=== PATIENT | female | born 1955 | race Caucasian/White ===

== ENCOUNTER 2016-07-09 17:15 | Emergency (ER) | payer OTHER ==
[2016-07-09] MEDS ORDERED: Albuterol/Ipratropium NEB.SOL* Albuterol 2.5 MG/Ipratropium 0.5 MG 3 ML INH ONE (18:12)
[2016-07-09] MEDS ORDERED: Ibuprofen TAB* 600 MG PO ONE (18:12)
--- NOTE | 2016-07-09 18:13 | UC ---
Respiratory Complaint HPI - HPI Summary HPI Summary: cough, fatigue and sore throat this week - History of Current Complaint Chief Complaint: UCRespiratory Stated Complaint: COUGH,ST Time Seen by Provider: 07/09/16 18:02 Hx Obtained From: Patient ?: No Onset/Duration: Gradual Onset, Lasting Days, Still Present Timing: Constant Character: Cough: Nonproductive Aggravating Factors: Deep Breaths Alleviating Factors: Nothing Associated Signs And Symptoms: Positive: Fever, Chills, Pleuritic Chest Pain, URI, Sinus Discomfort - Allergies/Home Medications Allergies/Adverse Reactions: Allergies Allergy/AdvReac Type Severity Reaction Status Date / Time No Known Allergies Allergy Verified 11/08/14 10:41 PMH/Surg Hx/FS Hx/Imm Hx Previously Healthy: Yes Endocrine History Of: Denies: Diabetes, Thyroid Disease Cardiovascular History Of: Denies: Cardiac Disorders, Hypertension, Pacemaker/ICD Respiratory History Of: Denies: COPD, Asthma GI/ History Of: Denies: Ulcer, Renal Disease Cancer History Of: Denies: Breast Cancer - Surgical History Surgical History: Yes Surgery Procedure, Year, and Place: 1991 ACL RECONSTRUCTION- [place]; CHOLECYSTECTOMY- [place]; ganglion cysts on 2 fingers removed 2014 - Family History Family History: no known history of cardiovascular issues in family lineage - Social History Occupation: Employed Full-time Lives: With Family Alcohol Use: Weekly Alcohol Amount: VARIES 3-5 DRINKS/WEEK SOCIALLY Substance Use Type: None Smoking Status (MU): Never Smoked Tobacco Have You Smoked in the Last Year: No Review of Systems Constitutional: Chills, Fatigue Skin: Negative Eyes: Negative ENT: Sore Throat, Nasal Discharge Respiratory: Cough Cardiovascular: Negative Gastrointestinal: Negative Genitourinary: Negative Motor: Negative Neurovascular: Negative Musculoskeletal: Negative Neurological: Negative Psychological: Negative All Other Systems Reviewed And Are Negative: Yes Physical Exam Triage Information Reviewed: Yes Appearance: Well-Nourished, Ill-Appearing, Pain Distress Vital Signs Reviewed: Yes Eye Exam: Normal Eyes: Positive: Conjunctiva Clear ENT Exam: Normal ENT: Positive: Normal ENT inspection, Hearing grossly normal, Pharynx normal, Nasal congestion, TMs normal. Negative: Tonsillar swelling, Tonsillar exudate, Trismus, Muffled/hoarse voice Dental Exam: Normal Neck exam: Normal Neck: Positive: Supple, Nontender, No Lymphadenopathy Respiratory Exam: Normal, Other Respiratory: Positive: Chest non-tender, No respiratory distress, No accessory muscle use, Wheezing Cardiovascular Exam: Normal Cardiovascular: Positive: RRR, No Murmur, Pulses Normal, Brisk Capillary Refill Musculoskeletal Exam: Normal Musculoskeletal: Positive: Strength Intact, ROM Intact, No Edema Neurological Exam: Normal Neurological: Positive: Alert, Muscle Tone Normal Psychological Exam: Normal Psychological: Positive: Normal Response To Family Skin Exam: Normal UC Diagnostic Evaluation - Radiology Xray Interpretation: Positive (See Comments) - 12 mm nodule in chest Re-Evaluation - Re-Evaluation First Eval Change: Improved - chest feels less congested, wheeze resolved Respiratory Course/Dx - Course Course Of Treatment: follow with pcp stephenie for ct chest, rest increase fluids, z- max, albuterol - Differential Dx/Diagnosis Differential Diagnosis/HQI/PQRI: Bronchitis, Exacerbation Of COPD, Laryngitis, Lower Resp Infection, Sinusitis Provider Diagnoses: Pulmonary nodule, lower respiratory infection Discharge - Discharge Plan Condition: Stable Disposition: HOME Prescriptions: Albuterol HFA INHALER* [Ventolin HFA Inhaler*] 2 puff INH Q6H PRN #1 mdi PRN Reason: cough Azithromycin TAB* [Zithromax TAB (Z-ANGELINE)*] 0 mg PO .Z-ANGELINE INSTRUCTIONS #6 tab Spacer/Aerosol-Holding Chamber [Aerochamber Plus] 1 mis .SEE ORDER SEE INSTRUCTIONS #1 mis Patient Education Materials: How to Use a Metered-Dose Inhaler (ED), Upper Respiratory Infection (ED), Pulmonary Nodules (ED) Referrals: Marry Hernandez MD [Primary Care Provider] - 1 Day
[2016-07-09 18:30] VITALS: BP 138/88
--- NOTE | 2016-07-09 18:39 | RAD ---
INDICATION: 4 days cough. Fever. COMPARISON: None. TECHNIQUE: Dual energy PA and routine lateral views of the chest were obtained. REPORT: Elevated lung volumes. Approximate 1.2 cm maximum dimension nodular density at the anterior segment of the RIGHT upper lobe peripherally. Negative for pleural effusions or pneumothorax. Negative for cardiomegaly or prominence of the central pulmonary vasculature. Indeterminate opacity in the retrosternal clear space measuring up to 3.5 cm which may represent alveolar consolidation or potentially a mediastinal mass. IMPRESSION: Indeterminant nodular density at the anterior segment of the RIGHT upper lobe as well as indeterminate opacity at the retrosternal clear space on the lateral view. Given absence of prior exams for comparison CT suggested for further assessment. Stigmata of potential chronic obstructive pulmonary disease.
== END 2016-07-09 19:07 | disposition home or self-care (01) ==
LOC: UCEAST 17:15
DX: J22 Unspecified acute lower respiratory infection (principal)
CPT/HCPCS: 71020; 94640; 99212; A9270-GY; G0463

== ENCOUNTER 2017-05-21 19:02 | Emergency (ER) | payer OTHER ==
[2017-05-21 19:09] VITALS: BP 128/82
[2017-05-21] MEDS ORDERED: Azithromycin TAB* 250 MG PO ONE (19:34)
--- NOTE | 2017-05-21 19:44 | UC ---
Respiratory Complaint HPI - HPI Summary HPI Summary: Patient presents with complaints of two week onset respiratory illnesses. She states that she continues to have sinus pain, pressure and congestion. She also complains of sinus pain behind her eyes. She denies fever, chills, chest pain, abdominal pain, nausea, vomiting and or diarrhea. - History of Current Complaint Chief Complaint: UCRespiratory Stated Complaint: COLD Time Seen by Provider: 05/21/17 19:20 Hx Obtained From: Patient ?: No Onset/Duration: Gradual Onset, Lasting Weeks Timing: Constant Severity Initially: Moderate Severity Currently: Moderate Character: Cough: Nonproductive Aggravating Factors: Nothing Alleviating Factors: Spontaneous Resolution Associated Signs And Symptoms: Positive: URI, Nasal Congestion, Sinus Discomfort - Risk Factors Pulmonary Embolism Risk Factors: Negative Cardiac Risk Factors: Negative Tuberculosis Risk Factors: Negative - Allergies/Home Medications Allergies/Adverse Reactions: Allergies Allergy/AdvReac Type Severity Reaction Status Date / Time No Known Allergies Allergy Verified 05/21/17 19:09 Home Medications: Home Medications Ibuprofen TAB* [Advil TAB*] 600 mg PO PRN 05/21/17 [History] Lisdexamfetamine(NF) [Vyvanse(NF)] 20 mg PO 05/21/17 [History] PMH/Surg Hx/FS Hx/Imm Hx Previously Healthy: Yes - Surgical History Surgical History: Yes Surgery Procedure, Year, and Place: 1991 ACL RECONSTRUCTION[place]; ganglion cysts on 2 fingers removed 2014 - Family History Known Family History: Positive: None Family History: no known history of cardiovascular issues in family lineage - Social History Occupation: Employed Full-time Alcohol Use: Occasionally Alcohol Amount: VARIES 3-5 DRINKS/WEEK SOCIALLY Substance Use Type: None Smoking Status (MU): Never Smoked Tobacco Have You Smoked in the Last Year: No Review of Systems Constitutional: Negative Skin: Negative Eyes: Negative ENT: Sinus Congestion, Sinus Pain/Tenderness Respiratory: Cough Cardiovascular: Negative Gastrointestinal: Negative Genitourinary: Negative Motor: Negative Neurovascular: Negative Musculoskeletal: Negative Neurological: Negative Psychological: Negative All Other Systems Reviewed And Are Negative: Yes Physical Exam Triage Information Reviewed: Yes Appearance: Well-Appearing Vital Signs: Initial Vital Signs Temp 97.9 F 05/21/17 19:05 Pulse 82 05/21/17 19:05 Resp 16 11/17/17 19:05 BP 128/82 05/21/17 19:05 Pulse Ox 97 05/21/17 19:05 Vital Signs Reviewed: Yes Eye Exam: Normal ENT: Positive: Nasal congestion, Nasal drainage, Hoarse voice, Sinus tenderness Dental Exam: Normal Neck exam: Normal Neck: Positive: 1 Respiratory Exam: Normal Cardiovascular Exam: Normal Abdominal Exam: Normal Musculoskeletal Exam: Normal Neurological Exam: Normal Psychological Exam: Normal Skin Exam: Normal UC Diagnostic Evaluation - Laboratory O2 Sat by Pulse Oximetry: 97 Respiratory Course/Dx - Course Course Of Treatment: Patient has persistent URI symptoms with associated sinus pain, pressure and on exam she has tenderness to palpation over the frontal sinuses, and the turbinates are inflammed and injected and edematous. Given the fact that it has been two weeks, I will proceed with treatment with zpk. First dose of zithromax 500 mg was given in the department. Patient was discharge home in stable condition. - Differential Dx/Diagnosis Differential Diagnosis/HQI/PQRI: Sinusitis Provider Diagnoses: sinusitis Discharge - Discharge Plan Condition: Stable Disposition: HOME Prescriptions: Azithromycin TAB* [Zithromax TAB (Z-ANGELINE) 250 mg #6 tabs] 250 mg PO DAILY #4 tab Patient Education Materials: Sinusitis (ED) Forms: *Work Release Referrals: Marry Hernandez MD [Primary Care Provider] -
== END 2017-05-21 19:44 | disposition home or self-care (01) ==
LOC: UCEAST 19:02
DX: J32.9 Chronic sinusitis, unspecified (principal); Z72.89 Other problems related to lifestyle
CPT/HCPCS: 99212; A9270-GY; G0463

== ENCOUNTER 2017-10-01 11:23 | Emergency (ER) | payer OTHER ==
[2017-10-01 11:37] VITALS: BP 124/81
--- NOTE | 2017-10-01 12:32 | UC ---
Respiratory Complaint HPI - HPI Summary HPI Summary: Patient comes to urgent care today with 7 days of upper respiratory symptoms. She complains of fatigue just wanting to her head down on her desk in sleep. 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 - History of Current Complaint Chief Complaint: UCGeneralIllness Stated Complaint: COUGH,HEADACHE Time Seen by Provider: 10/01/17 12:28 Hx Obtained From: Patient ?: No Onset/Duration: Sudden Onset, Lasting Days - 6-7 Timing: Constant Severity Initially: Mild Severity Currently: Moderate - 6 Pain Scale Used: 0-10 Numeric Character: Cough: Nonproductive Aggravating Factors: Recumbent Position Alleviating Factors: Nothing Associated Signs And Symptoms: Positive: Chills, Pleuritic Chest Pain, URI, Nasal Congestion, Sinus Discomfort - Allergies/Home Medications Allergies/Adverse Reactions: Allergies Allergy/AdvReac Type Severity Reaction Status Date / Time No Known Allergies Allergy Verified 10/01/17 11:30 PMH/Surg Hx/FS Hx/Imm Hx Previously Healthy: Yes - Surgical History Surgical History: Yes Surgery Procedure, Year, and Place: 1991 ACL RECONSTRUCTION- [place]; [place]OMY- [place]; ganglion cysts on 2 fingers removed 2014 - Family History Known Family History: Positive: None Family History: no known history of cardiovascular issues in family lineage - Social History Occupation: Employed Full-time Lives: With Family Alcohol Use: Occasionally Alcohol Amount: VARIES 3-5 DRINKS/WEEK SOCIALLY Substance Use Type: None Smoking Status (MU): Never Smoked Tobacco Have You Smoked in the Last Year: No Review of Systems Constitutional: Chills, Fatigue Skin: Negative Eyes: Negative ENT: Negative, Nasal Discharge, Sinus Congestion, Sinus Pain/Tenderness Respiratory: Cough Cardiovascular: Negative Gastrointestinal: Negative Genitourinary: Negative Motor: Negative Neurovascular: Negative Musculoskeletal: Arthralgia Neurological: Headache Psychological: Negative Is Patient Immunocompromised?: No All Other Systems Reviewed And Are Negative: Yes Physical Exam Triage Information Reviewed: Yes Appearance: Well-Appearing, No Pain Distress, Well-Nourished Vital Signs: Initial Vital Signs Temp 98.9 F 10/01/17 11:31 Pulse 91 10/01/17 11:31 Resp 16 10/01/17 11:31 BP 124/81 10/01/17 11:31 Pulse Ox 98 10/01/17 11:31 Vital Signs Reviewed: Yes Eye Exam: Normal Eyes: Positive: Conjunctiva Clear ENT Exam: Normal ENT: Positive: Normal ENT inspection, Hearing grossly normal, Pharynx normal, Nasal congestion, TMs normal, Sinus tenderness, Uvula midline. Negative: Tonsillar swelling, Tonsillar exudate, Trismus, Muffled voice, Hoarse voice, Dental tenderness Neck exam: Normal Neck: Positive: Supple, Nontender, No Lymphadenopathy Respiratory Exam: Normal Respiratory: Positive: Chest non-tender, Lungs clear, Normal breath sounds, No respiratory distress, No accessory muscle use Cardiovascular Exam: Normal Cardiovascular: Positive: RRR, No Murmur, Pulses Normal, Brisk Capillary Refill Musculoskeletal Exam: Normal Musculoskeletal: Positive: Strength Intact, ROM Intact, No Edema Neurological Exam: Normal Neurological: Positive: Alert, Muscle Tone Normal Psychological Exam: Normal Skin Exam: Normal UC Diagnostic Evaluation - Laboratory O2 Sat by Pulse Oximetry: 98 Diagnostic Studies Comment: Influenza A/B (-) Respiratory Course/Dx - Course Course Of Treatment: tylenol, ibuprofen, increase fluids, otc medications for symptoms relief, tessalon pearls prn follow with pcp prn - Differential Dx/Diagnosis Provider Diagnoses: URI Discharge - Sign-Out/Discharge Documenting (check all that apply): Discharge - Discharge Plan Condition: Stable Disposition: HOME Prescriptions: Benzonatate CAP* [Tessalon 100 MG CAP*] 100 - 200 mg PO TID PRN #40 cap PRN Reason: cough Patient Education Materials: Upper Respiratory Infection (ED), Viral Syndrome ( ED) Referrals: Marry Hernandez MD [Primary Care Provider] - If Needed - Billing Disposition and Condition Condition: STABLE Disposition: HOME
== END 2017-10-01 13:06 | disposition home or self-care (01) ==
LOC: UCEAST 11:23
DX: J06.9 Acute upper respiratory infection, unspecified (principal)
CPT/HCPCS: 87502; 99212; G0463

== ENCOUNTER 2018-09-09 10:49 | Emergency (ER) | payer OTHER ==
--- OUTSIDE RECORDS SUMMARY | 2018-09-09 10:58 | XMS REPORT | Continuity of Care Document ---
:1955 External Reference #:[id number] Author Name Marry Hernandez M.D. Address [address] [facility] [place] [address] Care Team Providers Name Role Phone Marry Hernandez MD Primary Care Physician Unavailable Payers Date Identification Numbers Payment Provider Subscriber Effective: 2012 Policy Number: [id number] [facility] Hernán M Toro Group Number: [id number] [address] PayID: [id number] [place] [address] Expires: 2012 Policy Number: [id number] [facility] Hernán Escobar Toro Group Number: [id number] [address] PayID: [id number] [place] [address] Expires: 2006 Policy Number: [id number] [facility] KAELYN Engel PayID: [id number] [address] [address] JEANINE Evans [address] Advance Directives Type Date Description Status Comment Other Directive 06/21/2018 Health Care Proxy Current and Verified Problems Date Description Provider Status Onset: 11/23/2011 Attention deficit hyperactivity Jeannette Zarate, N.P. Active disorder, predominantly inattentive type Onset: 08/24/2014 Osteopenia Marry Hernandez M.D. Active Onset: 08/10/2017 Enthesopathy of ankle AND/OR tarsus Larry Jerry MD Active Onset: 08/10/2017 Strain of peroneal tendon Larry Jerry MD Active Family History Date Family Member(s) Observation Comments : (age Father due to Alzheimer's Heart Disease, Prostate 89 Years) Disease Cancer : (age Mother due to Heart Perforated Ulcer, 82 Years) Disease Embolism Children 2 sons Siblings 5 First Brother Hyperthyroidism Thyroid Cancer Second Brother SKin Cancer First Sister Cancer Uterine Second Sister Alive And Well Third Sister Alive And Well Social History Type Date Description Comments Sex Unknown Marital Status Lives With Alone 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 Unknown smoker Never daily Smoking Status Reviewed: 08/22/18 Patient is a former not since her 30s. smoker Never daily Exercise Type/Frequency Exercises regularly 2 - 3 days weekly Allergies, Adverse Reactions, Alerts Description No Known Drug Allergies Medications Medication Date Status Form Strength Qnty SIG Indications Ordering Provider Vyvanse Active Capsules 20mg once a day Unknown Escitalopram Active Tablets 10mg 1 by mouth Unknown every day No Active 07/08 Hx Unknown Medications /2017 - 12/27 Ergocalciferol 11/12 Hx Capsules [id number] 12cap 1 cap by E55.9 s mouth every Cotton, - week for 12 M.D. Fluticasone 11/12 Hx Suspension 50mcg/Act 16gm 2 J31.0 intranasal Cotton, - puffs once M.D. 11/13 Vyvanse 08/24 Hx Capsules 20mg 1 by mouth prn Varn, N.P. - 07/08 Ergocalciferol 20 Hx Capsules [id number] 12cap 1 cap by 268.9 s mouth every Cotton, - week for 12 M.D. Ambien 12/02 Hx Tablets 5mg 30tab one by s mouth at Anni, - bedtime as M.D., FACP 07/12 needed for sleep Zithromax Z-Saleem 09/03 Hx Tablets 250mg 1Pack two po initially Cotton, - then one po M.D. 09/13 Proair HFA 09/03 Hx Aerosol 108(90Bas 1unit 1 to 2 e) mcg/ac s inhalations Anni, - every 4 M.DBritton, FACP 07/12 hours needed Vyvanse 05/08 Hx Capsules 60mg 30cap 1 capsule s daily Lenny Hutton M.D., FACP 08/24 Wellbutrin XL Hx 150mg Unknown /0000 - 07/08 Immunizations CPT Code Status Date Vaccine Lot # [id number] Given 07/12/2012 Zoster (Zostavax) [id number] 21242 Given 11/23/2011 Hepatitis B Vaccine Adult Dosage [id number] 73562 Given 06/24/2011 Hepatitis B Vaccine Adult Dosage 30708 Given 12/22/2010 Hepatitis B Vaccine Adult Dosage [id number] 05700 Given 12/22/2010 Hepatitis A Vaccine Adult Dosage [id number] 73600 Given 06/23/2010 Hepatitis B Vaccine Adult Dosage 64671 Given 06/23/2010 Hepatitis A Vaccine Adult Dosage 09442 Given 09/01/2007 Tdap - Tetanus/Diptheria/Acellular Pertussis 05921 Given 06/03/2006 Influenza Virus 3Yrs & Over Vital Signs Date Vital Result Comment 08/22/2018 4:39pm Height 65.25 inches 5'5.25" Weight 171.00 lb Heart Rate 75 /min BP Systolic 118 mmHg BP Diastolic 83 mmHg BP Systolic Sitting 118 mmHg BP Diastolic Sitting 83 mmHg O2 % BldC Oximetry 98 % BMI (Body Mass Index) 28.2 kg/m2 06/21/2018 11:33am Height 65.25 inches 5'5.25" Weight 166.00 lb Heart Rate 76 /min BP Systolic Sitting 117 mmHg BP Diastolic Sitting 82 mmHg Body Temperature 98.0 F O2 % BldC Oximetry 97 % BMI (Body Mass Index) 27.4 kg/m2 12/27/2017 12:57pm Height 65.25 inches 5'5.25" Weight 165.50 lb Heart Rate 76 /min BP Systolic Sitting 132 mmHg BP Diastolic Sitting 94 mmHg Respiratory Rate 16 /min Body Temperature 96.9 F BMI (Body Mass Index) 27.3 kg/m2 08/10/2017 8:45am Height 65.5 inches 5'5.50" Weight 155.00 lb BP Systolic 122 mmHg BP Diastolic 88 mmHg Respiratory Rate 16 /min Body Temperature 95.7 F Pain Level 4 BMI (Body Mass Index) 25.4 kg/m2 07/08/2017 3:26pm Height 65.5 inches 5'5.50" Weight 165.00 lb Heart Rate 74 /min BP Systolic 128 mmHg BP Diastolic 80 mmHg Respiratory Rate 14 /min Body Temperature 98.4 F Pain Level 5 BMI (Body Mass Index) 27.0 kg/m2 11/13/2016 1:06pm Height 65.5 inches 5'5.50" Weight 166.50 lb Heart Rate 84 /min BP Systolic 122 mmHg BP Diastolic 80 mmHg Body Temperature 97.5 F O2 % BldC Oximetry 98 % BMI (Body Mass Index) 27.3 kg/m2 11/13/2015 11:16am Height 65.5 inches 5'5.50" Weight 166.25 lb Heart Rate 66 /min BP Systolic Sitting 127 mmHg BP Diastolic Sitting 81 mmHg O2 % BldC Oximetry 98 % BMI (Body Mass Index) 27.2 kg/m2 10/29/2014 2:53pm Heart Rate 76 /min BP Systolic Sitting 122 mmHg BP Diastolic Sitting 78 mmHg 10/01/2014 2:53pm Height 66 inches 5'6" Weight 160.00 lb Heart Rate 86 /min BP Systolic 90 mmHg BP Diastolic 65 mmHg Body Temperature 97.8 F Pain Level 0 BMI (Body Mass Index) 25.8 kg/m2 08/24/2014 3:40pm Height 66 inches 5'6" Weight 160.00 lb Heart Rate 86 /min BP Systolic Sitting 110 mmHg BP Diastolic Sitting 72 mmHg Body Temperature 97.2 F BMI (Body Mass Index) 25.8 kg/m2 04/05/2014 4:41pm Height 66 inches 5'6" Weight 155.00 lb Heart Rate 90 /min BP Systolic 125 mmHg BP Diastolic 84 mmHg BMI (Body Mass Index) 25.0 kg/m2 07/12/2012 2:02pm Height 66.5 inches 5'6.50" Heart Rate 76 /min BP Systolic Sitting 100 mmHg BP Diastolic Sitting 70 mmHg Body Temperature 97.4 F 11/23/2011 1:02pm Height 66.5 inches 5'6.50" Weight 156.00 lb Heart Rate 80 /min BP Systolic Sitting 124 mmHg BP Diastolic Sitting 68 mmHg BMI (Body Mass Index) 24.8 kg/m2 09/03/2010 1:44pm Weight 154.00 lb Heart Rate 78 /min BP Systolic 110 mmHg BP Diastolic 78 mmHg Body Temperature 98.3 F 06/23/2010 3:05pm Weight 152.00 lb Heart Rate 80 /min BP Systolic 120 mmHg BP Diastolic 78 mmHg 05/08/2010 8:37am Weight 150.50 lb Heart Rate 78 /min BP Systolic 110 mmHg BP Diastolic 80 mmHg Results Test Date Facility Test Result H/L Range Note Lipid Profile 08/15/2018 [facility] Triglycerides 41 mg/dL 1 (Trig/Chol/HDL) [address] [place], [place] [id number] [phone] Cholesterol 157 mg/dL 2 HDL Cholesterol 70.2 mg/dL 3 LDL Cholesterol 79 mg/dL 4 Laboratory test 08/15/2018 [facility] Glucose 104 mg/dL High 70-100 finding [address] [place], [place] [id number] [phone] Rapid Influenza 10/01/2017 [facility] Influenza A NEGATIVE Negative 5 A & B Molecular [address] [facility] [place] [address] [phone] Influenza B Molecular NEGATIVE Negative Lipid Profile 11/05/2016 [facility] Triglycerides 61 mg/dL N 6 (Trig/Chol/HDL) [address] [place], [place] [id number] [phone] Cholesterol 149 mg/dL N 7 HDL Cholesterol 54.3 mg/dL N 8 LDL Cholesterol 83 mg/dL N 9 Comp Metabolic Panel 11/05/2016 [facility] Sodium 138 mmol/L N 133-145 [address] [place] [address] [phone] Potassium 4.0 mmol/L N 3.5-5.0 Chloride 101 mmol/L N 101-111 Co2 Carbon Dioxide 31 mmol/L N 22-32 Anion Gap 6 mmol/L N 2-11 Glucose 96 mg/dL N 70-100 Blood Urea Nitrogen 15 mg/dL N 6-24 Creatinine 0.78 mg/dL N 0.51-0.95 BUN/Creatinine Ratio 19.2 N 8-20 Calcium 9.4 mg/dL N 8.6-10.3 Total Protein 6.7 g/dL N 6.4-8.9 Albumin 4.2 g/dL N 3.2-5.2 Globulin 2.5 g/dL N 2-4 Albumin/Globulin Ratio 1.7 N 1-3 Total Bilirubin 0.50 mg/dL N 0.2-1.0 Alkaline Phosphatase 63 U/L N 34-104 Alt 15 U/L N 7-52 Ast 16 U/L N 13-39 Egfr Non- 75.1 N >60 Egfr 96.6 N >60 10 CBC Auto Diff 11/05/2016 [facility] White Blood 4.7 10^3/uL N 3.5-10.[address] [place] [address] [phone] Red Blood Count 4.55 10^6/uL N 4.0-5.4 Hemoglobin 13.5 g/dL N 12.0-16.0 Hematocrit 40 % N 35-47 Mean Corpuscular Volume 89 fL N 80-97 Mean Corpuscular Hemoglobin 30 pg N 27-31 Mean Corpuscular HGB Conc 33 g/dL N 31-36 Red Cell Distribution Width 13 % N 10.5-15 Platelet Count 274 10^3/uL N 150-450 Mean Platelet Volume 8 um3 N 7.4-10.4 Abs Neutrophils 2.6 10^3/uL N 1.5-7.7 Abs Lymphocytes 1.5 10^3/uL N 1.0-4.8 Abs Monocytes 0.5 10^3/uL N 0-0.8 Abs Eosinophils 0.1 10^3/uL N 0-0.6 Abs Basophils 0.1 10^3/uL N 0-0.2 Abs Nucleated RBC 0 10^3/uL N Granulocyte % 54.9 % N 38-83 Lymphocyte % 32.0 % N 25-47 Monocyte % 9.9 % High 1-9 Eosinophil % 2.0 % N 0-6 Basophil % 1.2 % N 0-2 Nucleated Red Blood Cells % 0 N CBC Auto Diff 07/17/2016 [facility] White Blood 5.0 10^3/uL N 3.5-10.[address] [place] [address] [phone] Red Blood Count 4.26 10^6/uL N 4.0-5.4 Hemoglobin 12.6 g/dL N 12.0-16.0 Hematocrit 37 % N 35-47 Mean Corpuscular Volume 88 fL N 80-97 Mean Corpuscular Hemoglobin 30 pg N 27-31 Mean Corpuscular HGB Conc 34 g/dL N 31-36 Red Cell Distribution Width 13 % N 10.5-15 Platelet Count 490 10^3/uL High 150-450 Mean Platelet Volume 7 um3 Low 7.4-10.4 Abs Neutrophils 2.6 10^3/uL N 1.5-7.7 Abs Lymphocytes 1.8 10^3/uL N 1.0-4.8 Abs Monocytes 0.4 10^3/uL N 0-0.8 Abs Eosinophils 0.1 10^3/uL N 0-0.6 Abs Basophils 0.1 10^3/uL N 0-0.2 Abs Nucleated RBC 0 10^3/uL N Granulocyte % 51.7 % N 38-83 Lymphocyte % 36.3 % N 25-47 Monocyte % 8.6 % N 1-9 Eosinophil % 2.3 % N 0-6 Basophil % 1.1 % N 0-2 Nucleated Red Blood Cells % 0.1 N Comp Metabolic Panel 07/17/2016 [facility] Sodium 138 mmol/L N 133-[address] [place] [address] [phone] Potassium 4.3 mmol/L N 3.5-5.0 Chloride 101 mmol/L N 101-111 Co2 Carbon Dioxide 32 mmol/L N 22-32 Anion Gap 5 mmol/L N 2-11 Glucose 93 mg/dL N 70-100 Blood Urea Nitrogen 13 mg/dL N 6-24 Creatinine 0.68 mg/dL N 0.51-0.95 BUN/Creatinine Ratio 19.1 N 8-20 Calcium 9.4 mg/dL N 8.6-10.3 Total Protein 6.9 g/dL N 6.4-8.9 Albumin 3.9 g/dL N 3.2-5.2 Globulin 3.0 g/dL N 2-4 Albumin/Globulin Ratio 1.3 N 1-3 Total Bilirubin 0.20 mg/dL N 0.2-1.0 Alkaline Phosphatase 80 U/L N 34-104 Alt 17 U/L N 7-52 Ast 15 U/L N 13-39 Egfr Non- 88.0 N >60 Egfr 113.1 N >60 11 Laboratory test 11/12/2015 [facility] Vitamin D 17.2 ng/mL Low 30-50 [address] Total 25(Oh) [place] [address] [phone] Glucose 91 mg/dL N 70-100 13 Lipid Profile 11/12/2015 [facility] Triglycerides 51 mg/dL N 14 (Trig/Chol/HDL) [address] [place] [address] [phone] Cholesterol 179 mg/dL N 15 HDL Cholesterol 69.7 mg/dL N 16 LDL Cholesterol 99 mg/dL N 17 Surgical Pathology 10/16/2014 [facility] S RUN DATE: [address] <SEE NOTE> [place] [address] [phone] Laboratory test 08/24/2014 [facility] Cytology RUN DATE: finding [address] <SEE NOTE> [place] [address] [phone] HPV Rna W/ Reflex Genotype Negative N Negative 20 Vitamin D, 25 08/20/2014 [facility] 25-Hydroxy Vitamin <4.0 ng/ mL N [address] [address] [phone] 25-Hydroxy Vitamin D3 12 ng/mL N 25-Hydroxy Vitamin D Total 12 ng/mL Abnormal 22 Laboratory test 08/20/2014 [facility] Glucose 90 mg/dL N 70- [address] [place] [address] [phone] Lipid Profile 08/20/2014 [facility] Triglycerides 46 mg/dL N 24 (Trig/Chol/HDL) [address] [place] [address] [phone] Cholesterol 132 mg/dL N 25 HDL Cholesterol 55.4 mg/dL N 26 LDL Cholesterol 67 mg/dL N 27 Urine Culture And 07/12/2012 [facility] Urine Culture (SEE NOTE ) [address] [place] [address] [phone] Ua Routine 07/12/2012 [employer] Ua Specific 1.000 Gilead Ua PH 6 Ua Color yellow Ua Appera clear Ua WBC neg Ua Protein neg Ua Glucose neg Ua Ketones neg Ua Bilirubin neg Ua Urobilinogen neg Ua Nitrite neg Ua Occult Blood neg Vitamin D, 25 06/17/2012 [facility] 25-Hydroxy Vitamin <4.0 ng/ mL Hydroxy [address] [address] [phone] 25-Hydroxy Vitamin D3 18 ng/mL 25-Hydroxy Vitamin D Total 18 ng/mL Abnormal 29 Vitamin D 06/17/2012 [facility] Vitamin D 48 pg/mL 18-78 30 1,[address] 1,25-Dihydroxy Vitamin D,2 [place], [place] [id number] [phone] Lipid Profile 06/17/2012 [facility] Triglycerides 28 mg/dL Low 40-200 (Trig/Chol/HD [address] L) [place] [address] [phone] Cholesterol 161 mg/dL Less than 200 HDL Cholesterol 68 mg/dL High 40-60 31 Cholesterol/HDL Ratio 2.4 Average 1-4.44 LDL Cholesterol 87.4 mg/dL Less Than 100 32 Comp Metabolic Panel 06/17/2012 [facility] Sodium 139 mmol/L 133-[address] [place] [address] [phone] Potassium 4.1 mmol/L 3.5-5.0 Chloride 103 mmol/L 101-111 Co2 Carbon Dioxide 31.0 mmol/L 22-32 Anion Gap 5.0 mmol/L 2-11 Glucose 75 mg/dL 70-100 Blood Urea Nitrogen 14 mg/dL 6-24 Creatinine 0.70 mg/dL 0.50-1.40 BUN/Creatinine Ratio 20.0 8-20 Calcium 9.5 mg/dL 8.1-9.9 Total Protein 6.8 g/dL 6.2-8.1 Albumin 4.3 g/dL 3.6-5.4 Globulin 2.5 g/dL 2-4 Albumin/Globulin Ratio 1.7 1-3 Total Bilirubin 1.0 mg/dL 0.4-1.5 Alkaline Phosphatase 69 U/L 30-110 Alt 24 U/L 14-54 Ast 24 U/L 12-42 Egfr Non- 86.2 >60 Egfr 110.9 >60 33 Laboratory test 06/17/2012 [facility] TSH (Thyroid 1.15 0.34- 5.60 [address] Stimulating miu/[place] [address] Horm) [phone] Urine Culture And 06/17/2012 [facility] Urine Culture (SEE [address] NOTE) [place] [address] [phone] Laboratory test 11/23/2011 [facility] Cytology --------- [address] ------- [place] [address] <SEE [phone] NOTE> 1 Desirable: <150 Borderline High: 150-199 High: 200-499 Very High: >500 2 Desirable: <200 Borderline High: 200-239 High: >239 3 Low: <40 Desirable: 40-60 High: >60 4 Desirable: <100 Near Optimal: 100-129 Borderline High: 130-159 High: 160-189 Very High: >189 5 Patient Care Manager: [id number] Desirable <150 Borderline high 150-199 High 200-499 Very High >500 7 Desirable <200 Borderline high 200-239 High >239 8 Low <40 Desirable: 40-60 High: >60 9 Desirable: <100 mg/dL Near Optimal: 100-129 mg/dL Borderline High: 130-159 mg/dL High: 160-189 mg/dL Very High: >189 mg/dL 10 Because ethnic data is not always readily available, this report includes an eGFR for both -Americans and non- Americans. The National Kidney Disease Education Program (NKDEP) does not endorse the use of the MDRD equation for patients that are not between the ages of 18 and 70, are , have extremes of body size, muscle mass, or nutritional status, or are non- or non-. According to the National Kidney Foundation, irrespective of diagnosis, the stage of the disease is based on the level of kidney function: Stage Description GFR(mL/min/1.73 m(2)) 1 Kidney damage with normal or decreased GFR 90 2 Kidney damage with mild decrease in GFR 60-89 3 Moderate decrease in GFR 30-59 4 Severe decrease in GFR 15-29 5 Kidney failure <15 (or dialysis) 11 Because ethnic data is not always readily available, this report includes an eGFR for both -Americans and non- Americans. The National Kidney Disease Education Program (NKDEP) does not endorse the use of the MDRD equation for patients that are not between the ages of 18 and 70, are , have extremes of body size, muscle mass, or nutritional status, or are non- or non-. According to the National Kidney Foundation, irrespective of diagnosis, the stage of the disease is based on the level of kidney function: Stage Description GFR(mL/min/1.73 m(2)) 1 Kidney damage with normal or decreased GFR 90 2 Kidney damage with mild decrease in GFR 60-89 3 Moderate decrease in GFR 30-59 4 Severe decrease in GFR 15-29 5 Kidney failure <15 (or dialysis) 12 FASTING 12 HOUR 13 FASTING 12 HOUR 14 Desirable <150 Borderline high 150-199 High 200-499 Very High >500 15 Desirable <200 Borderline high 200-239 High >239 16 Low <40 Desirable: 40-60 High: >60 17 Desirable: <100 mg/dL Near Optimal: 100-129 mg/dL Borderline High: 130-159 mg/dL High: 160-189 mg/dL Very High: >189 mg/dL 18 RUN DATE: 10/17/14 [facility] LAB LIVE PAGE 1 RUN TIME: 1133 [address] [place], [place] [address] Specimen Inquiry Name: RUBEN ENGELN Shawn : [address]: Ca Grady MD Acct: [id number] Unit: [id number] AGE: 59 Location: [facility] Re10/16/14 SEX: F Status: [place] [facility] [place]C: [id number] AIDAN: 10/16/14-[address]: Ca Grady MD REQ: [id number] RECD: 10/16/14-1029 STATUS: SOUT _ ORDERED: LEVEL III/2 FINAL DIAGNOSIS 1. Right ring finger, excision: -- Ganglion cyst. 2. Left middle finger, excision: -- Ganglion cyst. PRE-OPERATIVE DIAGNOSIS Ganglion joint left middle finger and right ring finger GROSS DESCRIPTION 1. The specimen is received in formalin labeled, Ganglion Right Ring Finger , and consists of a 0.7 x 0.5 x 0.2 cm aggregate of pak white irregular rubbery soft tissue fragments, which is submitted entirely in one cassette. 2. The specimen is received in formalin labeled, Ganglion Left Middle Finger, and consists of a 0.9 x 0.6 x 0.3 cm conte irregular rubbery soft tissue fragment, which is submitted entirely in one cassette. Signed (signature on file) Gloria Najera MD 1133 END OF REPORT * ML=Testing performed at Main Lab DEPARTMENT OF PATHOLOGY, [facility] [employer] [place], [place] [address] Alber Weller M.D. Director [facility] # [id number] RUN DATE: 08/27/14 [facility] LAB LIVE PAGE 1 RUN TIME: [address] [facility] [employer] [place], [place] [address] Specimen Inquiry Name: HERNÁN ENGEL : [address]: Marry Hernandez MD Acct: [id number] Unit: [id number] AGE: 59 Location: [facility] Re08/24/14 SEX: F Status: REG REF SPEC: [id number] AIDAN: 08/24/[address]: Marry Hernandez MD REQ: [id number] RECD: 08/24/14 STATUS: SOUT _ ORDERED: IMAGE ANALYSIS, HPV/Thin Prep, HPV 16/18 GENE FINAL DIAGNOSIS Negative for Intraepithelial lesion or Malignancy A. Ectocervical/Endocervical Specimen Adequacy: Satisfactory of evaluation Transformation zone component identified Patient Information: HPV: High risk HPV RNA testing regardless of pap results. HPV 16/18 Genotype for HPV pos Actual Specimen Date: 08/24/14 LMP If Unknown: unknown ?: N Post Menopausal?: Y Hysterectomy?: N Previous Abnormal Pap Smears?:N Date Time Test Result Flag (u) Normal Range 08/24/141655 HPV RNA RFLX GE Negative Negative The high-risk HPV types detected by the assay include: 16, 18, 31, 33, 35, 39, 45, 51, 52, 56, 58, 59, 66, and 68. Signed (signature on file) Neal ClarosCT(ASCP) 1406 This Pap test was evaluated with the assistance of the [employer] Test Imaging System. Due to cytologic findings at the investigator vice microscope, comprehensive manual rescreening by a Administrative Resident may be required. The Pap Smear is a screening test designed to aid in the detection of premalignant and malignant conditions of the uterine cervix. It is not a diagnostic procedure and should not be used as the sole means of detecting cervical cancer. Both false- positive and false- negative reports do occur. Depending on your risk status, a Pap smear should be obtained and evaluated every 1-3 years. END OF REPORT * ML=Testing performed at Main Lab DEPARTMENT OF PATHOLOGY, [address] [place] [place] [address] Alber Weller M.D. Director [facility] # [id number] 20 The high-risk HPV types detected by the assay include: 16, 18, 31, 33, 35, 39, 45, 51, 52, 56, 58, 59, 66, and 68. 21 FASTING 22 Interpretation: 10-19 ng/mL (mild to moderate deficiency) REFERENCE VALUE 25-HYDROXY D TOTAL (D2+D3) Optimum levels in the healthy population are 20-50, patients with bone disease may benefit from higher levels within this range. Test Performed by: [facility] - [address] [address] [employer]: Ryan Montemayor II, M.D., Ph.D. 23 FASTING 24 Desirable <150 Borderline high 150-199 High 200-499 Very High >500 25 Desirable <200 Borderline high 200-239 High >239 26 Low <40 Desirable: 40-60 High: >60 27 Desirable <100 Near Optimal 100-129 Borderline high 130-159 High 160-189 Very High >189 28 RUN DATE: 07/14/12 [facility] LAB LIVE PAGE 1 RUN TIME: 0535 [address] [place], [place] [address] Specimen Inquiry Name: HERNÁN ENGLE : [address]: Jeannette Zarate Acct: [id number] Unit: [id number] AGE: 57 Location: [facility] Re07/12/12 SEX: F Status: REG REF SPEC: [id number] AIDAN: 07/12/[address]: Jeannette Zarate REQ: [id number] RECD: 07/12/12 STATUS: COMP _ SOURCE: URINE SPDESC: ORDERED: Urine Culture QUERIES: Medent Number [id number] Procedure Result Verified Site Urine Culture Final 07/14/12- 1025 ML Organism 1 NORMAL HUEY [place] Count 1-10,000 (Few) CFU/ML END OF REPORT * ML=Testing performed at Main Lab DEPARTMENT OF PATHOLOGY, [address] [place] [address] Alber Weller M.D. Director [facility] Permit #[id number] 29 Interpretation: 10-24 (mild to moderate deficiency) -- REFERENCE VALUE -- 25-HYDROXY D TOTAL (D2+D3) Optimum levels in the normal population are 25-80 Test Performed by: [address] [address] [employer]: Remi Moon III, M.D. 30 Test Performed by: [address] [address] [employer]: Remi Moon III, M.D. 31 HDL Interpretation: Undesirable: High Risk: Less than 40 MG/DL Desirable: Low Risk: Greater than 60 MG/DL 32 LDL Interpretation: Low Risk Optimal Level: LDL Less than 100 MG/DL Near or Above Optimal: LDL 100-129 MG/DL Borderline High Risk: LDL 130-159 MG/DL High Risk: LDL 160-189 MG/DL Very High Risk: LDL Greater than 189 MG/DL 33 Because ethnic data is not always readily available, this report includes an eGFR for both -Americans and non- Americans. The National Kidney Disease Education Program (NKDEP) does not endorse the use of the MDRD equation for patients that are not between the ages of 18 and 70, are , have extremes of body size, muscle mass, or nutritional status, or are non- or non-. According to the National Kidney Foundation, irrespective of diagnosis, the stage of the disease is based on the level of kidney function: Stage Description GFR(mL/min/1.73 m(2)) 1 Kidney damage with normal or decreased GFR 90 2 Kidney damage with mild decrease in GFR 60-89 3 Moderate decrease in GFR 30-59 4 Severe decrease in GFR 15-29 5 Kidney failure <15 (or dialysis) 34 PT IS FASTING 35 RUN DATE: 06/19/12 [facility] LAB LIVE PAGE 1 RUN TIME: [address] [place] [address] Specimen Inquiry Name: HERNÁN ENGEL : [address]: Cole Cunningham MD Acct: [id number] Unit: [id number] AGE: 57 Location: [facility] Re06/17/12 SEX: F Status: DEP ER SPEC: [id number] AIDAN: 06/17/12 [facility] DR: Herminio Amador MDkenyatta REQ: [id number] RECD: 06/17/12 STATUS: DIEGO ARREDONDO DR: Jeannette Moya _ SOURCE: URINE SPDESC: ORDERED: Urine Culture COMMENTS: Comment: KIMBERLEE ZARATE Procedure Result Verified Site Urine Culture Final 06/19/12- 905 ML Organism 1 KLEBSIELLA OXYTOCA [place] Count >100,000 (Many) CFU/ML 1. KLEBSIELLA OXYTOCA M.I.C. RX --------- ------ Amikacin <=2 S Ampicillin >=32 R * Ampicillin/Sublactam 8 S Cefazolin 8 S Cefepime <=1 S Cefoxitin <=4 S Ceftazidime <=1 S Ceftriaxone <=1 S Ciprofloxacin <=0.25 S Gentamicin <=1 S Imipenem <=1 S Levofloxacin <=0.12 S Nitrofurantoin 32 S Piperacillin R Tigecycline <=0.5 S Trimethoprim/Sulfamethoxazole <=20 S CONTINUED ON NEXT PAGE * ML=Testing performed at Main Lab DEPARTMENT OF PATHOLOGY, [address] [place] [address] Alber Weller M.D. Director [facility] Permit #[id number] RUN DATE: 06/19/12 [facility] LAB LIVE PAGE 2 RUN TIME: [address] [place] [id number] Specimen Inquiry Patient: HERNÁN ENGEL [id number] (Continued) Specimen: [id number] Collected: 06/17/12 Received: 06/17/12-1216 (Continued) Procedure Result Verified Site Urine Culture Final (continued) * These antibiotics are not available in the [facility] Formulary Contact the Microbiology Department for any additional antibiotic reporting. END OF REPORT * ML=Testing performed at Main Lab DEPARTMENT OF PATHOLOGY, [address] [place] [address] Alber Weller M.D. [facility] Permit #[id number] ---- RUN DATE: 11/24/11 [facility] NMI LIVE PAGE 1 RUN TIME: 1431 Specimen Inquiry RUN USER: INTERFACE -- Name: HERNÁN ENGEL Status: REG REF Re11/23/11 Age/Sex: 56/F Unit#: [id number] Location: [facility] : 55 -- Specimen: [id number] SOUT Spec Date:11/23/11-[address]: Jeannette Zarate [facility] Spec Type: CYTOLOGY Received:11/24/11 Copies to: SOURCE ECTOCERVICAL/ENDOCERVICAL Thin Prep with Reflex HPV Test PATIENT INFORMATION ACTUAL COLLECTION DATE: 11/23/11 ? No POST MENOPAUSAL? No HYSTERECTOMY? No PREVIOUS ABNORMAL PAP SMEARS No PATIENT HISTORY: Last menstrual period age 49 ADEQUACY OF SPECIMEN Satisfactory for evaluation * Transformation zone component identified * DIAGNOSIS NEGATIVE FOR INTRAEPITHELIAL LESION OR MALIGNANCY * This Pap test was evaluated with the assistance of the [employer] Pap Test Imaging System. The Pap Smear is a screening test designed to aid in the detection of premalign ant and malignant conditions of the uterine cervix. It is not a diagnostic procedure a nd should not be used as the sole means of detecting cervical cancer. Both false- positiv e and false-negative reports do occur. Depending on your risk status, a Pap smear davidson uld be obtained and evaluated every one to three years. Initial evaluation performed by Brea TANNER([facility]) 11/24/11 Final Interpretation electronically signed by: Brea TANNER([facility]) 11/24/11 1430 -- -- DEPARTMENT OF PATHOLOGY, [address] [place] [address] [facility] Permit #[id number] Alber Weller M.D. Director Sadie Smith M.D. Banquet Captain Dir domingo -- Procedures Date Code Description Status 05/19/2018 970719896 Diabetic Retinal Eye Exam Completed 12/27/2017 57980 EKG Tracing & Interpretation Completed 11/12/2017 [id number] Mammogram Completed 11/13/2016 93494 Admin & Interp Of Health Risk Assessment w/ Patient Completed 11/09/2016 [id number] Colonoscopy Completed 10/06/2016 376080338 Bone Mineral Density Test Completed 10/06/2016 [id number] Mammogram Completed 10/16/2014 72546 Excision Tendon Sheath Ganglion /Or Joint Capsule Hand Completed Or Finger 10/16/2014 69672 Excision Tendon Sheath Ganglion /Or Joint Capsule Hand Completed Or Finger 09/06/2014 [id number] Mammogram Completed 04/05/2014 14963 Rad Exam; Ankle Comp Completed 04/07/2012 [id number] Bone Mineral Density Test Completed 04/07/2012 [id number] Mammogram Completed 11/01/2008 309610738 Bone Mineral Density Test Completed 11/01/2008 [id number] Mammogram Completed 10/21/2007 [id number] Mammogram Completed 09/01/2007 43291 EKG Tracing & Interpretation Completed 09/02/2006 [id number] Colonoscopy Completed Encounters Type Date Location Provider Dx Diagnosis Office Visit 06/21/2018 [facility] Internal Heather Foster MD H26.9 Unspecified 11:30a Medicine - cataract [place] Z01.818 Encounter for other preprocedural examination Office Visit 12/27/2017 [facility] Internal Jeannette Zarate, Z01.818 Encounter for other 1:00p Medicine - N.P. preprocedural [place] examination H35.341 Macular cyst, hole, or pseudohole, right eye Office Visit 08/10/2017 8:30a Orthopedic Larry Jerry, S86.312A Strain Services Of MD peterson/danni C.M.A. peroneal grp at low leg lev, left leg, init M25.775 Osteophyte, left foot Office Visit 07/08/2017 3:00p Orthopedic Ca Grady, M25.572 Pain in left Services Of [place] ankle and C.M.A. joints of left foot M65.872 Other synovitis and tenosynovitis, left ankle and foot S63.511A Sprain of carpal joint of right wrist, initial encounter Office Visit 11/13/2016 1:20p [facility] Internal Marry Z00.00 Encntr for Ana Hernandez M.D. [facility] medical exam w/o abnormal findings R91.8 Other nonspecific abnormal finding of lung field Office Visit 11/13/2015 11:20a [facility] Internal Marry Z00.00 Encntr fina Hernandez M.D. [facility] medical exam w/o abnormal findings J31.0 Chronic rhinitis E55.9 Vitamin D deficiency, unspecified Office Visit 10/01/2014 2:45p Orthopedic Ca 727.41 Ganglion Joint [facility] [place] Grady C.M.A. Office Visit 08/24/2014 3:40p [facility] Internal Marry V70.0 Examination Ana Hernandez M.D. [facility] Routine AT Health Care Facility V76.10 Screening For Malignant Neoplasm Breast 268.9 Vitamin D Deficiency Unspec 727.40 Cyst Synovial Unspec 709.8 Skin Disorders Other Spec Office Visit 04/05/2014 Orthopedic Ca 845.03 Sprains & Strains 4:45p [facility] [place] Grady Ankle Tibiofibular C.M.A. (Ligament) Distal Office Visit 07/12/2012 [facility] Internal Jeannette Zarate, 788.1 Dysuria 1:40p Medicine - N.P. [place] V04.89 Need For Prophylactic Vaccination & Inoculation Other Virus Office Visit 11/23/2011 1:00p [facility] Internal Jeannette Zaraet, V70.0 Examination Medicine - N.P. [facility] Routine AT Health Care Facility V76.10 Screening For Malignant Neoplasm Breast V72.31 Routine Clother In Examination 733.90 Bone & Cartilage Disorder Unspec 311 Depressive Disorder Not Elsewhere Spec V05.3 Viral Hepatitis Vaccination & Inoculation Office Visit 09/03/2010 DO Not Use Jeannette Varn, 466.0 Bronchitis Acute 1:45p [facility] [facility] N.P. Office Visit 06/23/2010 DO Not Use Jeannette Varn, V65.49 Counseling Other 3:00p [facility] N.P. Spec V05.3 Viral Hepatitis Vaccination & Inoculation Office Visit 05/08/2010 DO Not Use Jeannette 782.0 Skin Sensation 8:30a [facility] Varn, N.P. Disturbance Office Visit 10/22/2009 DO Not Use Jeannette V72.31 Routine Clother In 8:45a [facility] Varn, N.P. Examination Office Visit 08/09/2009 DO Not Use Jeannette 487.1 Influenza W/ Other 1:45p [facility] Varn, N.P. Respiratory Manifestations Office Visit 10/17/2008 DO Not Use Jeannette V72.31 Routine Clother In 8:45a [facility] [facility] Varn, N.P. Examination Office Visit 09/01/2007 DO Not Use Leida Hutton V72.31 Routine Clother In 3:30p Una Stock, FACP Examination 780.79 Malaise And Fatigue Other V06.1 Hwmptfujas-Yixojhr-Inbthlwq Combined (DTaP) Office Visit 11/22/2006 DO Not Use Kavon, 726.10 Bursae & Tendon 4:30p Una Yu M.D. Disorders Shoulder Region Unspec 723.1 Cervicalgia Office Visit 06/03/2006 DO Not Use Kavon V72.31 Routine Clother In 2:30p Una Yu M.D. Examination V04.81 Need For Prophylactic Vaccination & Inoculation/Influenza Plan of Treatment 08/22/2018 - Marry Hernandez M.D.Z00.00 Encounter for general adult medical examination without abnoComments:~B_VACCINES:~b_Flu shot every year in the fall.Tetanus: last one done in 2007. Booster every 10 years, earlier if major injuryPneumonia vaccines: recommended at age 65Shingles vaccine: Zostavax: 50% effective, you had this in 2012Shingrix: 90% effective. This is a new shingles vaccine, available at pharmacies. Series of 2 shots, given 2-6 months apart. Most people get a flu-like reaction. Cost is about $400 - call your insurance about coverage. ~B_SCREENING:~b_Colonoscopy: last one done on 11/09/16 - next due in 2026Mammogram: last done 11/12/17Pap smear: done 2014 - pap was normal and HPV was negative, next due in 2019. We stop at age 65Skin screening: with Dr. Harris - once a yearBone density (DEXA): done in 2016. Hip bone density was stable. Cholesterol: just checked ~B_EXERCISE:~b_ Find a personal trainerMake a date, see lead trainer once a weekExercise homework in between session~B_DIET:~b_ Drink less - none at all during the weekInstead drink herbal tea and [place] Look for protein snack for daytimeFollow up:[facility] follow up at end of HeartburnComments:Triggers for heartburn1. Alcohol2. High fat food3. Caffeine4. peppermint5. Eating to close to bedtime6. Weight gainL98.9 Disorder of the skin and subcutaneous tissue, unspecifiedReferral:Damaris Harris MD, Dermatology
[2018-09-09 11:28] VITALS: BP 129/81
--- NOTE | 2018-09-09 15:11 | UC ---
Respiratory Complaint HPI - HPI Summary HPI Summary: 3 days of sore throat, pain with swallowing, cough and hoarse voice. No fever. No nausea/vomiting. - History of Current Complaint Chief Complaint: UCGeneralIllness Stated Complaint: SORE THROAT HEADACHE Time Seen by Provider: 09/09/18 13:48 Hx Obtained From: Patient Onset/Duration: Gradual Onset, Lasting Days, Still Present Timing: Constant Severity Initially: Moderate Severity Currently: Moderate Pain Intensity: 4 Pain Scale Used: 0-10 Numeric Character: Cough: Nonproductive Aggravating Factors: Nothing Alleviating Factors: Nothing Associated Signs And Symptoms: Positive: URI, Hoarseness. Negative: Fever, Wheezing - Allergies/Home Medications Allergies/Adverse Reactions: Allergies Allergy/AdvReac Type Severity Reaction Status Date / Time No Known Allergies Allergy Verified 09/09/18 11:28 PMH/Surg Hx/FS Hx/Imm Hx Previously Healthy: Yes - Surgical History Surgical History: Yes Surgery Procedure, Year, and Place: 1991 [facility] ; [facility]Y- [facility] ; ganglion cysts on 2 fingers removed 2014 - Family History Known Family History: Positive: None Family History: no known history of cardiovascular issues in family lineage - Social History Alcohol Use: Occasionally Alcohol Amount: VARIES 3-5 DRINKS/WEEK SOCIALLY Substance Use Type: None Smoking Status (MU): Never Smoked Tobacco Have You Smoked in the Last Year: No Review of Systems All Other Systems Reviewed And Are Negative: Yes Constitutional: Positive: Fatigue. Negative: Fever ENT: Positive: Sore Throat, Nasal Discharge Respiratory: Positive: Cough Cardiovascular: Positive: Negative Gastrointestinal: Positive: Negative Physical Exam Triage Information Reviewed: Yes Appearance: Well-Appearing, No Pain Distress, Well-Nourished Vital Signs: Initial Vital Signs Temp 98.5 F 09/09/18 11:26 Pulse 94 09/09/18 11:26 Resp 16 09/09/18 11:26 BP 129/81 09/09/18 11:26 Pulse Ox 98 09/09/18 11:26 Laboratory Tests 09/09/18 12:09 Group A Strep Rapid Negative Vital Signs Reviewed: Yes Eyes: Positive: Conjunctiva Clear ENT: Positive: Hearing grossly normal, Pharynx normal, TMs normal Neck: Positive: Supple, Nontender, No Lymphadenopathy Respiratory Exam: Normal Cardiovascular Exam: Normal Abdomen Description: Positive: Soft Musculoskeletal: Positive: No Edema Neurological: Positive: Alert Psychological: Positive: Age Appropriate Behavior Skin: Negative: Rashes Respiratory Course/Dx - Differential Dx/Diagnosis Provider Diagnosis: Laryngitis, Upper respiratory infection Discharge - Sign-Out/Discharge Documenting (check all that apply): Patient Departure All imaging exams completed and their final reports reviewed: No Studies - Discharge Plan Condition: Stable Disposition: HOME Prescriptions: Codeine Phosphate/Guaifenesin [Codeine-Guaifen 10-100 mg/5 ml] 5 - 10 ml PO Q6H PRN #150 ml MDD 40ML PRN Reason: Cough Magic Mouth Was-MP/MAAL/LIDO* 5 - 10 ml SWISH SWAL QID PRN #150 ml PRN Reason: Sore Throat predniSONE TAB* [Deltasone 20 MG TAB*] 40 mg PO DAILY #10 tab Patient Education Materials: Laryngitis (ED), Upper Respiratory Infection (ED) Referrals: Marry Hernandez MD [Primary Care Provider] - If Needed Additional Instructions: STREP NEGATIVE. YOUR SYMPTOMS ARE LIKELY VIRALLY MEDIATED AND SHOULD RESOLVE ON THEIR OWN WITH TIME. NO INDICATION FOR ANTIBIOTICS AT PRESENT. REST, HYDRATE, OTC MEDS NEEDED. WILL TREAT WITH PREDNISONE TO HELP WITH AIRWAY INFLAMMATION AND COUGH MEDICINE. SEEK FOLLOW-UP IF YOU ARE NOT IMPROVING OVER THE NEXT 1-2 WEEKS. - Billing Disposition and Condition Condition: STABLE Disposition: Home
== END 2018-09-09 14:05 | disposition home or self-care (01) ==
LOC: UCEAST 10:49
DX: J06.9 Acute upper respiratory infection, unspecified (principal); J04.0 Acute laryngitis
CPT/HCPCS: 87651; 99212; G0463

== ENCOUNTER 2018-09-17 15:06 | Emergency (ER) | payer OTHER ==
[2018-09-17 15:23] VITALS: BP 143/96
--- NOTE | 2018-09-17 16:21 | UC ---
Respiratory Complaint HPI - HPI Summary HPI Summary: uri for 2 weeks rx with prednisone and cough med---is still coughing and bring up sputum no fever no pleuritic pain - History of Current Complaint Chief Complaint: UCRespiratory Stated Complaint: COUGH Time Seen by Provider: 09/17/18 16:08 Hx Obtained From: Patient ?: No Onset/Duration: Gradual Onset, Lasting Weeks - 2, Still Present Timing: Constant Severity Initially: Moderate Severity Currently: Mild Pain Intensity: 5 Pain Scale Used: 0-10 Numeric Character: Cough: Productive Alleviating Factors: Nothing Associated Signs And Symptoms: Positive: URI - Allergies/Home Medications Allergies/Adverse Reactions: Allergies Allergy/AdvReac Type Severity Reaction Status Date / Time No Known Allergies Allergy Verified 09/17/18 15:24 Home Medications: Home Medications Lisdexamfetamine Dimesylate [Vyvanse] 1 tab PO DAILY 09/17/18 [History Confirmed 09/17/18] PMH/Surg Hx/FS Hx/Imm Hx Previously Healthy: No Psychological History: Other Other Psychological History: Adhd - Surgical History Surgical History: Yes Surgery Procedure, Year, and Place: 1991 ACL RECONSTRUCTION- [place]; [place]OMY[place]; ganglion cysts on 2 fingers removed 2014 - Family History Known Family History: Positive: None Family History: no known history of cardiovascular issues in family lineage - Social History Occupation: Employed Full-time Lives: Alone Alcohol Use: Occasionally Alcohol Amount: VARIES 3-5 DRINKS/WEEK SOCIALLY Substance Use Type: None Smoking Status (MU): Never Smoked Tobacco Have You Smoked in the Last Year: No Review of Systems All Other Systems Reviewed And Are Negative: Yes Constitutional: Positive: Negative Skin: Positive: Negative Eyes: Positive: Negative ENT: Positive: Negative Respiratory: Positive: Cough Cardiovascular: Positive: Negative Gastrointestinal: Positive: Negative Genitourinary: Positive: Negative Motor: Positive: Negative Neurovascular: Positive: Negative Musculoskeletal: Positive: Negative Neurological: Positive: Negative Psychological: Positive: Negative Is Patient Immunocompromised?: No Physical Exam Triage Information Reviewed: Yes Appearance: Well-Appearing, No Pain Distress, Well-Nourished Vital Signs: Initial Vital Signs Temp 97.7 F 09/17/18 15:20 Pulse 80 09/17/18 15:20 Resp 12 09/17/18 15:20 BP 143/96 09/17/18 15:20 Pulse Ox 98 09/17/18 15:20 Vital Signs Reviewed: Yes Eye Exam: Normal Eyes: Positive: Conjunctiva Clear ENT Exam: Normal ENT: Positive: Normal ENT inspection, Hearing grossly normal, Pharynx normal, TMs normal, Uvula midline. Negative: Nasal congestion, Tonsillar swelling, Trismus, Muffled voice, Hoarse voice, Dental tenderness, Sinus tenderness Dental Exam: Normal Neck exam: Normal Neck: Positive: Supple, Nontender, No Lymphadenopathy Respiratory Exam: Normal Respiratory: Positive: Chest non-tender, Lungs clear, Normal breath sounds, No respiratory distress, No accessory muscle use Cardiovascular Exam: Normal Cardiovascular: Positive: RRR, No Murmur, Pulses Normal, Brisk Capillary Refill Musculoskeletal Exam: Normal Musculoskeletal: Positive: Strength Intact, ROM Intact, No Edema Neurological Exam: Normal Neurological: Positive: Alert Psychological Exam: Normal Skin Exam: Normal Respiratory Course/Dx - Course Course Of Treatment: patient refused MDI---tessalon increase fluids, z-max if not improving or worsens follow with pcp - Differential Dx/Diagnosis Provider Diagnosis: URI (upper respiratory infection), Post-viral cough syndrome, Hypertension Discharge - Sign-Out/Discharge Documenting (check all that apply): Patient Departure All imaging exams completed and their final reports reviewed: No Studies - Discharge Plan Condition: Stable Disposition: HOME Prescriptions: Azithromycin TAB* [Zithromax TAB (Z-ANGELINE) 250 mg #6 tabs] 2 tab PO .TODAY, THEN 1 DAILY #1 angeline Benzonatate CAP* [Tessalon 100 MG CAP*] 100 mg PO TID PRN #30 cap PRN Reason: Cough Patient Education Materials: Hypertension (ED), Acute Cough (ED) Referrals: Marry Hernandez MD [Primary Care Provider] - 2 Weeks - Billing Disposition and Condition Condition: STABLE Disposition: Home
== END 2018-09-17 16:34 | disposition home or self-care (01) ==
LOC: UCEAST 15:06
DX: J06.9 Acute upper respiratory infection, unspecified (principal); I10 Essential (primary) hypertension; R05 Cough; F90.9 Attention-deficit hyperactivity disorder, unspecified type
CPT/HCPCS: 99212; G0463

== ENCOUNTER 2018-11-09 06:36 | Day surgery (SDC) | payer OTHER ==
[~2018-11-09 06:36] MED LIST: Acetaminophen TAB* 325 MG PO PRN; Buffered Lidocaine 0.9% SYRIN* 5 ML/SYR SYRINGE INTRADERM ONE; Buffered Lidocaine 1% SYRIN* 1 ML/SYRINGE INTRADERM ONE
[2018-11-09] MEDS ORDERED: Midazolam* 1 MG/ML 5 ML VIAL (5 MG) ONE (07:33)
[2018-11-09 08:49] VITALS: BP 128/91
--- NOTE | 2018-11-09 12:45 | OP ---
DATE OF OPERATION: 11/09/2018. DATE OF : 1955. SURGEON: Hernan Sherwood M.D. PREOPERATIVE DIAGNOSIS: Cataract right eye. POSTOPERATIVE DIAGNOSIS: Cataract right eye. OPERATIVE PROCEDURE: Extracapsular cataract extraction with intraocular lens implant and CTR right e ye. PROCEDURE: The patient was brought to the operating room after being given 1/2% Alcaine with epineph rine drops in the preoperative area. The eye was prepped and draped in the usual sterile fashion. S terile drape and eyelid speculum were placed. Again, topical 1/2% Alcaine with epinephrine was given . A paracentesis incision was made at the 9 o'clock position with the No.75 blade. Clear cornea inc ision 2.2 x 2.2-mm was created at the 12 o'clock position starting at the anterior limbus using the 2 .2-mm keratome. The anterior chamber was irrigated with 0.4 mL of 1% non-preservative intracameral l idocaine and filled with DisCoVisc. A capsulorrhexis was completed using the cystotome and the Utrat a forceps. Hydrodissection was performed with balanced salt solution. The lens nucleus was removed w ith the Phacoemulsification handpiece without incident. Cortex was removed with the irrigation-aspir ation handpiece. The capsular bag was re-inflated using DisCoVisc and an [id number] implant was inser vipin with the shooter, confirmed by ORA and then followed by a CTR ACTR11 inserted with its shooter wi thout difficulty. The irrigation-aspiration handpiece was used to remove all residual DisCoVisc. Th e eye was refilled with balanced salt solution and the wound checked and found to be watertight. Top ical Maxitrol drops were given. [id number]/[facility] #: [id number]
[2018-11-09] MEDS ORDERED: Ketorolac 0.5% OPHTH (NF) 0.5 % 5 ML BTL ONE (13:54)
[2018-11-09] MEDS ORDERED: Proparacaine 0.5% OPHTH.SOL* 15 ML BTL ONE (13:54)
[2018-11-09] MEDS ORDERED: Phenylephrine OPHTH SOL 2.5%* 2 ML ONE (13:54)
[2018-11-09] MEDS ORDERED: Lidocaine 1%* 5 ML VIAL ONE (13:54)
[2018-11-09] MEDS ORDERED: acetaZOLAMIDE TAB* 250 MG ONE (13:54)
[2018-11-09] MEDS ORDERED: Neomycin/Polymy/Dex OPTH.SUSP* MAXITROL 0.1% 5 ML ONE (13:54)
[2018-11-09] MEDS ORDERED: Cyclopentolate 1% OPTH.SOL* 2 ML BTL ONE (13:54)
[2018-11-09] MEDS ORDERED: Lidocaine 2% EPI 1:200000 MPF*10-20 ML VIAL ONE (13:54)
[2018-11-09] MEDS ORDERED: Povidone Iodine 5% OPTH* 30 ML BTL ONE (13:54)
== END 2018-11-09 08:39 | disposition home or self-care (01) ==
LOC: OREAST 06:36
PROVIDERS: ATTEND Specialist
DX: H25.811 Combined forms of age-related cataract, right eye (principal); H35.341 Macular cyst, hole, or pseudohole, right eye; H04.123 Dry eye syndrome of bilateral lacrimal glands; Z87.891 Personal history of nicotine dependence; M25.552 Pain in left hip; R06.83 Snoring; F90.9 Attention-deficit hyperactivity disorder, unspecified type
CPT/HCPCS: A9270-GY; J2250; V2632

== ENCOUNTER 2018-11-16 06:44 | Day surgery (SDC) | payer OTHER ==
[~2018-11-16 06:44] MED LIST changes: -Buffered Lidocaine 0.9% SYRIN* 5 ML/SYR SYRINGE INTRADERM ONE
[2018-11-16] MEDS ORDERED: Midazolam* 1 MG/ML 2 ML VIAL (2 MG) ONE (07:49)
[2018-11-16 08:46] VITALS: BP 109/74
[2018-11-16] MEDS ORDERED: Neomycin/Polymy/Dex OPTH.SUSP* MAXITROL 0.1% 5 ML ONE (09:35)
[2018-11-16] MEDS ORDERED: Phenylephrine OPHTH SOL 2.5%* 2 ML ONE (09:35)
[2018-11-16] MEDS ORDERED: Lidocaine 1%* 5 ML VIAL ONE (09:35)
[2018-11-16] MEDS ORDERED: Cyclopentolate 1% OPTH.SOL* 2 ML BTL ONE (09:35)
[2018-11-16] MEDS ORDERED: Ketorolac 0.5% OPHTH (NF) 0.5 % 5 ML BTL ONE (09:35)
[2018-11-16] MEDS ORDERED: Povidone Iodine 5% OPTH* 30 ML BTL ONE (09:35)
[2018-11-16] MEDS ORDERED: acetaZOLAMIDE TAB* 250 MG ONE (09:35)
[2018-11-16] MEDS ORDERED: Lidocaine 2% EPI 1:200000 MPF*10-20 ML VIAL ONE (09:35)
[2018-11-16] MEDS ORDERED: Proparacaine 0.5% OPHTH.SOL* 15 ML BTL ONE (09:36)
--- NOTE | 2018-11-16 10:33 | OP ---
ADDENDUM TO OPERATIVE REPORT DATE OF OPERATION: 11/16/18. Indication for complex cataract surgery: Status post vitrectomy requiring capsular tension device. [id number]/[facility] #: [id number] [facility] PARTNERSGl[facility]
--- NOTE | 2018-11-16 10:33 | OP ---
OPERATIVE NOTE: DATE OF OPERATION: 11/16/18 DATE OF : 55 SURGEON: Hernan Sherwood M.D. PREOPERATIVE DIAGNOSIS: Cataract, left eye. POSTOPERATIVE DIAGNOSIS: Cataract, left eye. OPERATIVE PROCEDURE: Extracapsular cataract extraction with intraocular lens implant, left eye, and CTR. PROCEDURE: The patient was brought to the operating room after being given 1/2 % Alcaine with epinephrine drops in the preoperative area. The eye was prepped and draped in the usual sterile fashion. Sterile drape and eyelid speculum were placed. Again, topical 1/2% Alcaine with epinephrine was given. A paracentesis incision was made at the 3 o'clock position with the No.75 blade. Clear cornea incision 2.2 x 2.2-mm was created at the 6 o'clock position starting at the anterior limbus using the 2.2-mm keratome. The anterior chamber was irrigated with 0.4 mL of 1% non-preservative intracameral lidocaine and filled with DisCoVisc. A capsulorrhexis was completed using the cystotome and the Utrata forceps. Hydrodissection was performed with balanced salt solution. The lens nucleus was removed with the Phacoemulsification handpiece without incident. Cortex was removed with the irrigation-aspiration handpiece. The capsular bag was re-inflated using DisCoVisc and an [id number] 23.5 implant was inserted with the shooter, confirmed with ORA, followed by capsular tension ring CTR 11 inserted with the shooter. The irrigation-aspiration handpiece was used to remove all residual DisCoVisc. The eye was refilled with balanced salt solution and the wound checked and found to be watertight. Topical Maxitrol drops were given. Indication for complex cataract surgery s/p vitrectomy requiring capsular tension device [id number]/[facility] #: [id number] [facility]ITALGlenda
== END 2018-11-16 08:41 | disposition home or self-care (01) ==
LOC: OREAST 06:44
PROVIDERS: ATTEND Specialist
DX: H25.812 Combined forms of age-related cataract, left eye (principal); H35.343 Macular cyst, hole, or pseudohole, bilateral; H04.123 Dry eye syndrome of bilateral lacrimal glands; H53.021 Refractive amblyopia, right eye; F90.9 Attention-deficit hyperactivity disorder, unspecified type
CPT/HCPCS: A9270-GY; J2250; V2632